=== PATIENT | male | born 1975 | race Hispanic/Latino ===

== ENCOUNTER 2021-02-06 12:42 | Emergency (ER) | payer OTHER ==
[~2021-02-06] VITALS: Ht 167.6 cm; Wt 81.6 kg
[2021-02-06 12:52] VITALS: BP 135/86
[2021-02-06] MEDS ORDERED: LIDOCAINE HCL 1% 20 ML VIAL INJ STA (13:03)
[2021-02-06] MEDS ORDERED: CEFAZOLIN SODIUM 1 GM VIAL IM STA (13:03)
[2021-02-06] MEDS ORDERED: TETANUS/DIPHTHERIA TOXOID [ADULT] 0.5 ML VIAL IM STA (13:03)
[2021-02-06] MEDS ORDERED: CEPH500B PO (14:38)
[2021-02-06] MEDS ORDERED: MUPIROCIN OINTMENT 22 GM TUBE TP ONE (15:00)
[2021-02-06 15:10] VITALS: BP 126/78
== END 2021-02-06 15:45 | disposition home or self-care (01) ==
LOC: EDH 12:42
DX: S51.812A Laceration without foreign body of left forearm, initial encounter (principal); X99.1XXA Assault by knife, initial encounter; Y93.89 Activity, other specified; Y92.89 Other specified places as the place of occurrence of the external cause; Y99.8 Other external cause status
CPT/HCPCS: 12004; 90471; 90714; 96372; 99284; J0690